=== PATIENT | male | born 1980 | race Hispanic/Latino ===

== ENCOUNTER 2017-12-31 18:17 | Emergency (ER) | payer BC ==
[2017-12-31] MEDS ORDERED: ONDANSETRON 4 MG/2 ML VIAL ONE (20:04)
[2017-12-31] MEDS ORDERED: MORPHINE 4 MG/ML SYR ONE (20:04)
[2017-12-31] MEDS ORDERED: NA CHLORIDE 0.9% 1,000 ML ONE (20:04)
[2017-12-31 20:26] LABS: Bicarbonate 28 mEq/L (21-31); Glucose Level 116 mg/dL (65-120); Lipase 34 U/L (22-51); Potassium 3.5 mEq/L (3.6-5.0); Sodium Level 138 mEq/L (135-145)
[2017-12-31 20:27] LABS: Absolute Lymphocytes (CBC) 2.6 K/uL (0.7-4.9); Absolute Monocytes 0.7 K/uL (0.1-1.3); Absolute Neutrophil 3.3 K/uL (1.8-8.0); Basophils % 0.5 % (0-1.3); Eosinophils % 1.9 % (0-4.4); Hematocrit 44.6 % (39.6-49.0); Lymphocytes % 38.8 % (15.3-44.8); MCH 31.8 pg (27.0-35.0); MCV 91.9 fL (80-100); MPV 8.3 fL (7.6-11.3); Monocytes % 9.9 % (3.3-12.3); RBC Red Blood Cell Count 4.86 M/uL (4.33-5.43)
[2017-12-31 20:32] LABS: ALT/SGPT 26 IU/L (10-60); AST/SGOT 20 IU/L (10-42); Albumin 4.8 g/dL (3.2-5.5); Alkaline Phosphatase 53 IU/L (42-121); BUN Blood Urea Nitrogen 12 mg/dL (6-20); Bilirubin Direct 0.1 mg/dL (0-0.2); Bilirubin Total 0.9 mg/dL (0.3-1.2); Protein, Total 7.2 g/dL (6.0-8.3)
--- NOTE | 2017-12-31 21:22 | RAD REPORT ---
EXAM DESCRIPTION: CT - Abdomen Pelvis W Contrast - 12/31/2017 9:04 pm CLINICAL HISTORY: Abdominal pain left upper quadrant pain for 2 years. COMPARISON: 2016 TECHNIQUE: Computed axial tomography of the abdomen pelvis was obtained. 100 cc Isovue-300 was admin istered intravenously. Oral contrast was not requested which limits evaluation of bowel. All CT scans are performed using dose optimization technique as appropriate and may include automated exposure control or mA/KV adjustment according to patient size. FINDINGS: The liver, spleen, pancreas, adrenal and kidneys appear unremarkable. There is no evidence of diverticulitis. The appendix is normal. A small left inguinal hernia contains fat IMPRESSION: No acute abnormality is displayed.
[2017-12-31] MEDS ORDERED: MAGNE/ALUM HYDROXD 30 ML UCUP ONE (21:58)
[2017-12-31] MEDS ORDERED: LIDOCAINE VISCOUS 2% SOLN 15 ML UDC ONE (21:58)
[2017-12-31 22:05] LABS: Urine Blood NEGATIVE (NEG); Urine Glucose NEGATIVE (NEG); Urine Protein NEGATIVE (NEG); Urine Specific Gravity 1.015 (1.005-1.030)
--- NOTE | 2017-12-31 23:41 | EDPHYS ---
Physician Documentation [facility] Name: Scott Jean Baptiste Age: 37 yrs Sex: Male : 1980 Arrival Date: 12/31/2017 Time: 18:22 Bed 20 Private MD: Huan Mcconnell T ED Physician Isaiah Hussein HPI: 12/31 21:46 This 37 yrs old Male presents to ER via Ambulatory with complaints of pm1 Abdominal Pain. 21:46 The patient presents with abdominal pain in the left upper quadrant. Onset: The pm1 symptoms/episode began/occurred 2 day(s) ago. The symptoms radiate to the left flank. Associated signs and symptoms: Pertinent positives: nausea, Pertinent negatives: chest pain, diarrhea, dysuria, fever, shortness of breath, vomiting. The symptoms are described as sharp. Modifying factors: The symptoms are alleviated by nothing, the symptoms are aggravated by nothing. Severity of pain: in the emergency department the pain is actually worse. The patient has experienced similar episodes in the past, a few times. The patient has not recently seen a physician. Last seen by Dr. Cifuentes 2 years ago for similar abdominal pain. Patient had ultrasound and EGD at that time that were negative. Patient has a scheduled outpatient US ordered by his PCP in the next few days. Historical: - Allergies: 18:36 No Known Allergies; aj - Home Meds: 18:36 None [Active]; aj - PMHx: 18:36 None; aj - PSHx: 18:36 None; aj - Immunization history:: Adult Immunizations up to date. - Social history:: Smoking status: Patient/guardian denies using tobacco, Patient uses alcohol, occasionally. - Ebola Screening: : No symptoms or risks identified at this time. ROS: 22:00 Constitutional: Negative for fever, chills, and weight loss, Eyes: Negative for injury, pm1 pain, redness, and discharge, ENT: Negative for injury, pain, and discharge, Neck: Negative for injury, pain, and swelling, Cardiovascular: Negative for chest pain, palpitations, and edema, Respiratory: Negative for shortness of breath, cough, wheezing, and pleuritic chest pain. 22:00 Back: Negative for injury and pain, : Negative for injury, bleeding, discharge, and swelling, MS/Extremity: Negative for injury and deformity, Skin: Negative for injury, rash, and discoloration, Neuro: Negative for headache, weakness, numbness, tingling, and seizure. 22:00 Abdomen/GI: Positive for abdominal pain, nausea, Negative for vomiting, diarrhea. Exam: 22:00 Constitutional: This is a well developed, well nourished patient who is awake, alert, pm1 and in no acute distress. Head/Face: Normocephalic, atraumatic. Eyes: Pupils equal round and reactive to light, extra-ocular motions intact. Lids and lashes normal. Conjunctiva and sclera are non-icteric and not injected. Cornea within normal limits. Periorbital areas with no swelling, redness, or edema. ENT: Nares patent. No nasal discharge, no septal abnormalities noted. Tympanic membranes are normal and external auditory canals are clear. Oropharynx with no redness, swelling, or masses, exudates, or evidence of obstruction, uvula midline. Mucous membranes moist. Neck: Trachea midline, no thyromegaly or masses palpated, and no cervical lymphadenopathy. Supple, full range of motion without nuchal rigidity, or vertebral point tenderness. No Meningismus. Chest/axilla: Normal chest wall appearance and motion. Nontender with no deformity. No lesions are appreciated. Cardiovascular: Regular rate and rhythm with a normal S1 and S2. No gallops, murmurs, or rubs. Normal PMI, no JVD. No pulse deficits. Respiratory: Lungs have equal breath sounds bilaterally, clear to auscultation and percussion. No rales, rhonchi or wheezes noted. No increased work of breathing, no retractions or nasal flaring. 22:00 Back: No spinal tenderness. No costovertebral tenderness. Full range of motion. Skin: Warm, dry with normal turgor. Normal color with no rashes, no lesions, and no evidence of cellulitis. MS/ Extremity: Pulses equal, no cyanosis. Neurovascular intact. Full, normal range of motion. 22:00 Abdomen/GI: Inspection: abdomen appears normal, Bowel sounds: normal, Palpation: soft, mild abdominal tenderness, in the left upper quadrant. Vital Signs: 18:36 BP 162 / 103; Pulse 86; Resp 20; Temp 98.0; Pulse Ox 100% on R/A; Weight 85.73 kg; aj Height 5 ft. 11 in. (180.34 cm); 20:43 BP 163 / 99; Pulse 72; Resp 18; Pulse Ox 98% on R/A; mg2 20:48 BP 163 / 99; Pulse 96; Resp 18; Pulse Ox 99% on R/A; Pain 5/10; ea 23:05 BP 149 / 91; Pulse 78; Resp 18; Pulse Ox 97% on R/A; mg2 23:10 BP 149 / 91; Pulse 90; Resp 18; Temp 98(O); Pulse Ox 99% on R/A; Pain 2/10; ea 18:36 Body Mass Index 26.36 (85.73 kg, 180.34 cm) aj MDM: 19:25 Patient medically screened. pm1 23:40 Data reviewed: vital signs. Data interpreted: Pulse oximetry: on room air is 99 %. pm1 Interpretation: normal. Counseling: I had a detailed discussion with the patient and/or guardian regarding: the historical points, exam findings, and any diagnostic results supporting the discharge/admit diagnosis, lab results, radiology results, the need for outpatient follow up, to return to the emergency department if symptoms worsen or persist or if there are any questions or concerns that arise at home. 12/31 19:39 Order name: Basic Metabolic Panel; Complete Time: 21:45 pm1 12/31 19:39 Order name: CBC with Diff; Complete Time: 21:45 pm1 12/31 19:39 Order name: Creatinine for Radiology; Complete Time: 21:45 pm1 12/31 19:39 Order name: Hepatic Function; Complete Time: 21:45 pm1 12/31 19:39 Order name: Lipase; Complete Time: 21:45 pm1 12/31 20:58 Order name: Urine Dipstick--Ancillary (enter results); Complete Time: 23:07 cc 12/31 19:39 Order name: IV Saline Lock; Complete Time: 20:31 pm1 12/31 19:39 Order name: Labs collected and sent; Complete Time: 20:31 pm1 12/31 19:39 Order name: Urine Dipstick-Ancillary (obtain specimen); Complete Time: 20:31 pm1 12/31 19:39 Order name: CT Abd/Pelvis - W/Contrast: IV contrast only; Complete Time: 21:45 pm1 Administered Medications: 20:09 Drug: Zofran 4 mg Route: IVP; Site: right antecubital; ea 20:31 Follow up: Response: No adverse reaction ea 20:31 Follow up: Response: No adverse reaction; Pain is decreased ea 20:10 Drug: NS 0.9% 1000 ml Route: IV; Rate: 1000 ml; Site: right antecubital; ea 22:00 Follow up: Response: No adverse reaction; IV Status: Completed infusion; IV Intake: ea 1000ml 20:10 Drug: morphine 4 mg Route: IVP; Site: right antecubital; ea 21:15 Follow up: Response: No adverse reaction; Pain is decreased ea 22:00 Drug: GI Cocktail without - (Maalox Suspension 30 ml, Lidocaine Liquid 2 % 15 ea ml) Route: PO; 23:00 Follow up: Response: No adverse reaction; Marked relief of symptoms ea Disposition: 12/31/17 23:41 Discharged to Home. Impression: Unspecified abdominal pain. - Condition is Stable. - Discharge Instructions: Abdominal Pain, Adult. - Medication Reconciliation Form, Thank You Letter, Work release form form. - Follow up: Emergency Department; When: As needed; Reason: Worsening of condition. Follow up: Endy Cifuentes MD; When: 2 - 3 days; Reason: Recheck today's complaints, Continuance of care, Re-evaluation by your physician. - Problem is new. - Symptoms have improved. Addendum: 01/03/2018 07:09 Co-signature as Attending Physician, Isaiah Hussein MD I agree with the assessment and c zelaya plan of care. Signatures: Dispatcher [employer] EDMS Libby Jones RN RN aj Anderson, Corey, MD MD cha Marinas, Patrick, WATER TREATMENT TECHNICIAN WATER TREATMENT TECHNICIAN pm1 Nubia Gotti RN RN ea Corrections: (The following items were deleted from the chart) 12/31 23:41 23:41 12/31/2017 23:41 Discharged to Home. Impression: Unspecified abdominal pain. pm1 Condition is Stable. Forms are Work release form, Medication Reconciliation Form, Thank You Letter, Antibiotic Education, Prescription Opioid Use. Follow up: Emergency Department; When: As needed; Reason: Worsening of condition. Follow up: Endy Cifuentes; When: 2 - 3 days; Reason: Recheck today's complaints, Continuance of care, Re-evaluation by your physician. pm1 23:49 23:41 12/31/2017 23:41 Discharged to Home. Impression: Unspecified abdominal pain. ea Condition is Stable. Forms are Work release form, Medication Reconciliation Form, Thank You Letter, Antibiotic Education, Prescription Opioid Use. Follow up: Emergency Department; When: As needed; Reason: Worsening of condition. Follow up: Endy Cifuentes; When: 2 - 3 days; Reason: Recheck today's complaints, Continuance of care, Re-evaluation by your physician. Problem is new. Symptoms have improved. pm1
--- NOTE | 2017-12-31 23:41 | ER ---
Nurse's Notes [facility] Name: Scott Jean Baptiste Age: 37 yrs Sex: Male : 1980 Arrival Date: 12/31/2017 Time: 18:22 Bed 20 Private MD: Huan Mcconnell T Diagnosis: Unspecified abdominal pain Presentation: 12/31 18:35 Presenting complaint: Patient states: LUQ pain for [address] Cifuentes for this aj complaint. Had U/S and Endoscopy with no findings. Transition of care: patient was not received from another setting of care. Onset of symptoms was December 31, 2017. Risk Assessment: Do you want to hurt yourself or someone else? Patient reports no desire to harm self or others. Initial Sepsis Screen: Does the patient meet any 2 criteria?. Care prior to arrival: None. 18:35 Method Of Arrival: Ambulatory aj 18:35 Acuity: JOSSE 3 aj 20:00 Initial Sepsis Screen: Does the patient have a suspected source of infection? No. ea Patient's initial sepsis screen is negative. Triage Assessment: 18:36 General: Appears in no apparent distress. comfortable, Behavior is calm, cooperative, aj appropriate for age. Pain: Complains of pain in left upper quadrant. Neuro: Level of Consciousness is awake, alert, obeys commands, Oriented to person, place, time, situation, Appropriate for age. Respiratory: Airway is patent Respiratory effort is even, unlabored, Respiratory pattern is regular, symmetrical. GI: Reports upper abdominal pain. Derm: Skin is intact, is healthy with good turgor, Skin is pink, warm \T\ dry. normal. Historical: - Allergies: 18:36 No Known Allergies; aj - Home Meds: 18:36 None [Active]; aj - PMHx: 18:36 None; aj - PSHx: 18:36 None; aj - Immunization history:: Adult Immunizations up to date. - Social history:: Smoking status: Patient/guardian denies using tobacco, Patient uses alcohol, occasionally. - Ebola Screening: : No symptoms or risks identified at this time. Screenin:34 Abuse screen: Denies threats or abuse. Nutritional screening: No deficits noted. ea Tuberculosis screening: No symptoms or risk factors identified. Fall Risk None identified. Assessment: 20:00 General: Appears uncomfortable, Behavior is calm, cooperative, appropriate for age. ea Pain: Complains of pain in left upper quadrant Pain radiates to mid back area, left low back and left mid back Pain currently is 9 out of 10 on a pain scale. Neuro: Level of Consciousness is awake, alert, obeys commands, Oriented to person, place, time, situation. Cardiovascular: Patient's skin is warm and dry. Respiratory: Airway is patent Respiratory effort is even, unlabored, Respiratory pattern is regular, symmetrical, Breath sounds are clear bilaterally. GI: Abdomen is non-distended, Bowel sounds present X 4 quads. Abd is soft X 4 quads Abdomen is tender to palpation in left upper quadrant. : No signs and/or symptoms were reported regarding the genitourinary system. EENT: No signs and/or symptoms were reported regarding the EENT system. Derm: No signs and/or symptoms reported regarding the dermatologic system. Musculoskeletal: No signs and/or symptoms reported regarding the musculoskeletal system. 21:00 Reassessment: Patient and/or family updated on plan of care and expected duration. Pain ea level reassessed. Patient is alert, oriented x 3, equal unlabored respirations, skin warm/dry/pink. 22:17 Reassessment: Patient and/or family updated on plan of care and expected duration. Pain ea level reassessed. Patient is alert, oriented x 3, equal unlabored respirations, skin warm/dry/pink. 23:34 Reassessment: Patient and/or family updated on plan of care and expected duration. Pain ea level reassessed. Patient is alert, oriented x 3, equal unlabored respirations, skin warm/dry/pink. Patient states feeling better. Patient states symptoms have improved. 23:47 Reassessment: Patient and/or family updated on plan of care and expected duration. Pain ea level reassessed. Patient is alert, oriented x 3, equal unlabored respirations, skin warm/dry/pink. Discharge instructions given to patient, verbalized the understanding of instruction. Patient denies pain at this time. Patient states feeling better. Patient states symptoms have improved. Vital Signs: 18:36 BP 162 / 103; Pulse 86; Resp 20; Temp 98.0; Pulse Ox 100% on R/A; Weight 85.73 kg; aj Height 5 ft. 11 in. (180.34 cm); 20:43 BP 163 / 99; Pulse 72; Resp 18; Pulse Ox 98% on R/A; mg2 20:48 BP 163 / 99; Pulse 96; Resp 18; Pulse Ox 99% on R/A; Pain 5/10; ea 23:05 BP 149 / 91; Pulse 78; Resp 18; Pulse Ox 97% on R/A; mg2 23:10 BP 149 / 91; Pulse 90; Resp 18; Temp 98(O); Pulse Ox 99% on R/A; Pain 2/10; ea 18:36 Body Mass Index 26.36 (85.73 kg, 180.34 cm) aj ED Course: 18:22 Patient arrived in ED. as 18:22 Huan Mcconnell MD is Private Physician. as 18:36 Triage completed. aj 18:36 Arm band placed on left wrist. Patient placed in waiting room, Patient notified of wait aj time. 19:23 Nubia Gotti, AYLEEN is Primary Nurse. ea 19:24 Enio Montana NP is PHCP. pm1 19:24 Isaiah Hussein MD is Attending Physician. pm1 19:43 Radiology exam delayed due to lab results not completed at this time. IV insertion kw1 attempt and/or patient not having appropriate IV at this time. 20:00 Patient has correct armband on for positive identification. Bed in low position. Call ea light in reach. Side rails up X 1. 21:03 CT Abd/Pelvis - W/Contrast: IV contrast only In Process Unspecified. EDMS 23:41 Endy Cifuentes MD is Referral Physician. pm1 23:47 No provider procedures requiring assistance completed. IV discontinued, intact, ea bleeding controlled, No redness/swelling at site. Pressure dressing applied. Administered Medications: 20:09 Drug: Zofran 4 mg Route: IVP; Site: right antecubital; ea 20:31 Follow up: Response: No adverse reaction ea 20:31 Follow up: Response: No adverse reaction; Pain is decreased ea 20:10 Drug: NS 0.9% 1000 ml Route: IV; Rate: 1000 ml; Site: right antecubital; ea 22:00 Follow up: Response: No adverse reaction; IV Status: Completed infusion; IV Intake: ea 1000ml 20:10 Drug: morphine 4 mg Route: IVP; Site: right antecubital; ea 21:15 Follow up: Response: No adverse reaction; Pain is decreased ea 22:00 Drug: GI Cocktail without - (Maalox Suspension 30 ml, Lidocaine Liquid 2 % 15 ea ml) Route: PO; 23:00 Follow up: Response: No adverse reaction; Marked relief of symptoms ea Intake: 22:00 IV: 1000ml; Total: 1000ml. ea Outcome: 23:41 Discharge ordered by . pm1 23:48 Discharged to home ambulatory, with significant other. ea 23:48 Condition: improved 23:48 Discharge instructions given to patient, Instructed on discharge instructions, follow up and referral plans. Demonstrated understanding of instructions, follow-up care. 23:49 Patient left the ED. ea Signatures: Dispatcher [employer] EDMS Libby Jones RN RN aj Martinez, Amelia as Marinas, Patrick, MILITARY EDUCATION COORDINATOR MILITARY EDUCATION COORDINATOR pm1 Nubia Gotti RN RN ea Wilhelm, Kimberly kw1 Sebastian Jacobs RN RN mg2
== END 2017-12-31 23:49 | disposition home or self-care (01) ==
LOC: ER 18:17
DX: R10.12 Left upper quadrant pain (principal); R11.0 Nausea
CPT/HCPCS: 36415; 74177; 80048; 80076; 81003; 83690; 85025; 96361; 96374; 96375; 99283; J2405; J7030; Q9967